=== PATIENT | female | born 2000 | race Two or more races ===

== ENCOUNTER 2019-11-18 01:11 | Emergency (ER) | payer OTHER ==
[2019-11-18] MEDS ORDERED: SODIUM CHLORIDE 0.9% 1,000 ML IV STA (01:21)
[2019-11-18] MEDS ORDERED: KETOROLAC 30 MG/ML VIAL IVP STA (01:32)
[2019-11-18] MEDS ORDERED: ONDANSETRON 4 MG/2 ML VIAL IVP STA (01:32)
[2019-11-18] MEDS ORDERED: HYDROmorphone 1 MG/ML CARPUJECT IVP STA (01:32)
--- NOTE | 2019-11-18 01:42 | ED Physician Documentation ---
History of Present Illness - Stated complaint Stated Complaint: ABD PX - Chief complaint Chief Complaint: Abd Pain - History obtained from History obtained from: Patient - Additonal information Additional information: Patient comes emergency department complaining of upper abdominal pain after eating a burger tonight. Patient states that she has already been diagnosed with gallstones and surgery scheduled on November 25 to have her gallbladder removed. She states she is often had attacks of biliary colic at night and that this feels similar. She states that usually her episodes last all night and eventually go away. Patient states that this is a little more severe than other attacks, but that she has had other attacks that are at this intensity. She states the symptoms started around 2200. She denies any vomiting but has been nauseated. No jaundice. No fevers. No dysuria or diarrhea. No other complaints at this time. Review of Systems Ten Systems: 10 systems reviewed and negative Constitutional: reports: Reviewed and negative Eyes: reports: Reviewed and negative Ears: reports: Reviewed and negative Nose: reports: Reviewed and negative Throat: reports: Reviewed and negative Cardiac: reports: Reviewed and negative Respiratory: reports: Reviewed and negative GI: reports: Abdominal Pain, Nausea : reports: Reviewed and negative Skin: reports: Reviewed and negative Musculoskeletal: reports: Reviewed and negative Neurologic: reports: Reviewed and negative Psychiatric: reports: Reviewed and negative Endocrine: reports: Reviewed and negative Immunocompromised: reports: Reviewed and negative PD PAST MEDICAL HISTORY - Past Medical History Endocrine/Autoimmune: Other (Scleroderma) : Other (Remote urethral repair, age 2?) Derm: Other - Past Surgical History Past Surgical History: Yes - Present Medications Home Medications: Ambulatory Orders Medication Instructions Recorded Confirmed Cefuroxime Axetil [Ceftin] 500 mg PO BID #14 tablet 06/30/13 Cholecalciferol (Vitamin D3) 2,000 unit PO DAILY 06/30/13 06/30/13 [Vitamin D-3] Methotrexate Inj 25 mg IM ONCE 06/30/13 06/30/13 Phenazopyridine [Pyridium] 200 mg PO TID 6 Days tablet 06/30/13 HYDROcod/ACETAM 5/325 [[place] 5/325] 1 - 2 ea PO Q6H PRN #15 tablet 11/18/19 Ondansetron Odt [Zofran] 4 mg TL Q6H PRN #10 tablet 11/18/19 - Allergies Allergies/Adverse Reactions: Allergies Allergy/AdvReac Type Severity Reaction Status Date / Time No Known Drug Allergies Allergy Verified 11/18/19 01:19 - Social History Does the pt smoke?: No Smoking Status: Never smoker Does the pt drink ETOH?: No Does the pt have substance abuse?: No - Immunizations Immunizations are current?: Yes - POLST Patient has POLST: No PD ED PE NORMAL - Vitals Vital signs reviewed: Yes - General General: Alert and oriented X 3, No acute distress, Well developed/nourished - HEENT HEENT: Atraumatic, PERRL, EOMI, Moist mucous membranes - Neck Neck: Supple, no meningeal sign - Cardiac Cardiac: RRR, No murmur, Strong equal pulses - Respiratory Respiratory: No respiratory distress, Clear bilaterally - Abdomen Abdomen: Soft, Non distended, Other (Epigastric region mainly, lesser tenderness in RUQ. No RB/guarding.) - Back Back: No CVA TTP - Derm Derm: Normal color, Warm and dry, No rash - Extremities Extremities: No deformity, No edema, No calf tenderness / cord - Neuro Neuro: Alert and oriented X 3, Other (Grossly normal.) - Psych Psych: Normal mood, Normal affect Results - Vitals Vitals: Vital Signs - 24 hr 11/18/19 11/18/19 01:14 02:40 Temperature 36.6 C Heart Rate 90 76 Respiratory 16 14 Rate Blood Pressure 116/79 116/74 O2 Saturation 98 99 Oxygen O2 Source Room air - Labs Labs: Laboratory Tests 11/18/19 11/18/19 01:45 01:45 WBC 7.5 RBC 4.97 Hgb 13.8 Hct 40.9 MCV 82.3 MCH 27.8 MCHC 33.7 RDW 13.1 Plt Count 237 MPV 9.0 Neut # (Auto) 4.2 Lymph # (Auto) 2.2 [place] # (Auto) 0.6 Eos # (Auto) 0.3 Baso # (Auto) 0.0 Absolute Nucleated RBC 0.00 Nucleated RBC % 0.0 Sodium 138 Potassium 3.8 Chloride 101 Carbon Dioxide 22 Anion Gap 15.0 H BUN 14 Creatinine 0.6 Estimated GFR (MDRD) 126 Glucose 108 H Calcium 9.6 Total Bilirubin 0.6 AST 23 ALT 36 Alkaline Phosphatase 53 Total Protein 7.5 Albumin 4.7 Globulin 2.8 Albumin/Globulin Ratio 1.7 Lipase 49 PD MEDICAL DECISION MAKING - ED course Complexity details: reviewed old records, reviewed results, re-evaluated patient, considered differential, d/w patient ED course: The patient was treated symptomatically with IV Toradol, Dilaudid, and Zofran, and worked up with laboratory studies, Which showed no elevation in white blood cell count, LFTs, lipase, or bilirubin. The patient was found to be feeling much better after symptomatic treatment, and wished to go home. We discussed good ultrasound tonight, but she stated she would rather see if the episode completely passes on its own before getting another ultrasound, and she is just had an ultrasound recently. I do feel this is reasonable, but I did discuss with the patient that if the pain medication wears off and patient's pain comes right back, then she should Come back in for further evaluation and possibly an ultrasound. We have discussed home management of symptoms, and I have given her a prescription for analgesia and antiemetics.. Departure - Departure Disposition: 01 Home, Self Care Clinical Impression: Biliary colic Condition: Stable Instructions: ED Gallstone W Biliary Colic Prescriptions: HYDROcod/ACETAM 5/325 [[place] 5/325] 1 - 2 ea PO Q6H PRN #15 tablet PRN Reason: Pain Ondansetron Odt [Zofran] 4 mg TL Q6H PRN #10 tablet PRN Reason: Nausea / Vomiting Discharge Date/Time: 11/18/19 02:40
[2019-11-18 01:56] LABS: BASOPHILS % (AUTO) 0.5 %; EOSINOPHILS # (AUTO) 0.3 10^3/uL (0.0-0.7); EOSINOPHILS % (AUTO) 4.4 %; HGB - HEMOGLOBIN 13.8 g/dL (12.0-16.0); LYMPHOCYTES # (AUTO) 2.2 10^3/uL (1.5-3.5); LYMPHOCYTES % (AUTO) 29.9 %; MEAN CORPUSCULAR HEMOGLOBIN 27.8 pg (27.0-31.0); MEAN CORPUSCULAR HGB CONC 33.7 g/dL (32.0-36.0); MEAN CORPUSCULAR VOLUME 82.3 fL (81.0-99.0); MONOCYTES # (AUTO) 0.6 10^3/uL (0.0-1.0); MONOCYTES % (AUTO) 8.6 %; NEUTROPHILS # (AUTO) 4.2 10^3/uL (1.5-6.6); NEUTROPHILS % (AUTO) 56.3 %; PLT - PLATELET COUNT 237 10^3/uL (130-450); RED BLOOD COUNT 4.97 10^6/uL (4.20-5.40); RED CELL DISTRIBUTION WIDTH 13.1 % (12.0-15.0); WHITE BLOOD COUNT 7.5 x10^3/uL (4.8-10.8)
[2019-11-18 02:11] LABS: ALBUMIN 4.7 g/dL (3.2-5.5); ALBUMIN/GLOBULIN RATIO 1.7 (1.0-2.2); BILIRUBIN,TOTAL 0.6 mg/dL (0.2-1.0); CALCIUM 9.6 mg/dL (8.5-10.3); CREATININE 0.6 mg/dL (0.4-1.0); TOTAL PROTEIN 7.5 g/dL (6.7-8.2)
[2019-11-18 02:41] VITALS: BP 116/74
== END 2019-11-18 02:40 | disposition home or self-care (01) ==
LOC: ED 01:11
DX: K80.20 Calculus of gallbladder without cholecystitis without obstruction (principal)
CPT/HCPCS: 36415; 80053; 83690; 85025; 96374; 96375; 99283; 99284; J1170

== ENCOUNTER 2019-11-26 12:04 | Day surgery (SDC) | payer OTHER ==
[2019-11-26] MEDS ORDERED: PROPOFOL 200 MG/20 ML VIAL IVP ONE (12:05)
[2019-11-26] MEDS ORDERED: fentaNYL 100 MCG/2 ML VIAL IVP ONE (12:05)
[2019-11-26] MEDS ORDERED: MIDAZOLAM 2 MG/2 ML VIAL IVP ONE (12:05)
[2019-11-26] MEDS ORDERED: KETOROLAC 30 MG/ML VIAL IVP ONE (12:05)
[2019-11-26] MEDS ORDERED: ROCURONIUM 50 MG/5 ML VIAL IVP ONE (12:05)
[2019-11-26] MEDS ORDERED: LIDOCAINE-MPF 2% 5 ML VIAL IM ONE (12:05)
[2019-11-26] MEDS ORDERED: CEFAZOLIN SODIUM IN 0.9 % NACL 2 GM/100 ML BAG IV ONE (12:15)
--- NOTE | 2019-11-26 12:22 | ANESTHESIA ---
Pre-Anesthesia VS, & Labs - Diagnosis chronic cholecystitis - Procedure laparoscopic cholecystectomy Height 5 ft 3 in Body Mass Index 26.5 - NPO >8 hours - Is Patient ?: No - Lab Results Lab results reviewed: Yes Home Medications and Allergies Home Medications: Ambulatory Orders No Known Home Medications 11/25/19 No Known Home Medications 11/25/19 Allergies/Adverse Reactions: Allergies Allergy/AdvReac Type Severity Reaction Status Date / Time No Known Drug Allergies Allergy Verified 11/18/19 01:19 Anes History & Medical History - Anesthetic History Anesthesia Complications: reports: No previous complications Family history of Anesthesia Complications: Denies Family history of Malignant Hyperthermia: Denies - Medical History Cardiovascular: reports: None Pulmonary: reports: Asthma Gastrointestinal: reports: None Urinary: reports: None, Other Musculoskeletal: reports: None Endocrine/Autoimmune: reports: Other Skin: reports: None, Other Smoking Status: Never smoker Exam General: Alert, Oriented x3, Cooperative, No acute distress Dental: WNL Mouth Openin Fingerbreadth Neck Mobility: Normal Mallampati classification: II Respiratory: Lungs clear, Normal breath sounds, No respiratory distress, No accessory muscle use Cardiovascular: Regular rate, Normal S1, Normal S2, No murmurs Plan Anesthesia Type: General Consent for Procedure(s) Verified and Reviewed: Yes Code Status: Attempt Resuscitation ASA classification: 2-Mild systemic disease Is this case an emergency?: No
[2019-11-26] MEDS ORDERED: BUPIVACAINE 0.25% PF 30 ML VIAL ONE (12:38)
[2019-11-26] MEDS ORDERED: LACTATED RINGERS 1,000 ML IV ONE ×2 (12:40→14:40)
[2019-11-26] MEDS ORDERED: NALOXONE 0.4 MG/ML VIAL IVP PRN (12:41)
[2019-11-26] MEDS ORDERED: HYDROmorphone 0.5 MG/0.5 ML SYRINGE IVP PRN (12:41)
[2019-11-26] MEDS ORDERED: fentaNYL 100 MCG/2 ML VIAL IVP PRN (12:41)
[2019-11-26] MEDS ORDERED: ONDANSETRON 4 MG/2 ML VIAL IVP PRN ×2 (12:41→14:39)
[2019-11-26] MEDS ORDERED: METOCLOPRAMIDE 10 MG/2 ML VIAL IVP PRN (12:41)
[2019-11-26] MEDS ORDERED: ATROPINE ABBOJECT 1 MG/10 ML SYRINGE IVP PRN (12:41)
[2019-11-26] MEDS ORDERED: ePHEDrine 50 MG/ML VIAL IVP PRN (12:41)
[2019-11-26] MEDS ORDERED: MORPHINE 2 MG/ML CARPUJECT IVP PRN (12:41)
[2019-11-26 12:48] LABS: HCG UR QUAL NEGATIVE
[2019-11-26] MEDS ORDERED: LACTATED RINGERS 1,000 ML IV SCH (13:00)
[2019-11-26] MEDS ORDERED: BUPIVACAINE 0.25% PF 30 ML VIAL SUBQ ONE ×2 (13:19→14:15)
[2019-11-26] MEDS ORDERED: HYDROcod/ACETAM 5/325 MG TABLET PO PRN (14:39)
--- NOTE | 2019-11-26 15:02 | ANESTHESIA POST OP EVALUATION ---
Anesthesia Post Eval - Post Anesthesia Eval Vitals: Last Vital Signs Temp 36.0 C L 11/26/19 14:58 Pulse 81 11/26/19 14:58 Resp 20 11/26/19 14:58 BP 113/59 L 11/26/19 14:58 Pulse Ox 97 11/26/19 14:58 CV Function Including HR & BP: positive: Stable Pain Control: positive: Satisfactory Nausea & Vomiting: positive: Negative Mental Status: positive: Baseline Respiratory Status: Airway Patent Hydration Status: Satisfactory Anesthesia Complications: positive: None
[2019-11-26 15:29] VITALS: BP 121/69
--- NOTE | 2019-11-26 19:16 | OPERATIVE REPORT ---
DATE OF SERVICE: 11/26/2019 Physician: Arcenio Peraza MD PREOPERATIVE DIAGNOSIS: Chronic cholecystitis. POSTOPERATIVE DIAGNOSIS: Chronic cholecystitis. PROCEDURE PERFORMED: Laparoscopic cholecystectomy. SURGEON: Arcenio Peraza MD HEALTHCARE ACCOUNT MANAGER: None. ANESTHESIA 1. General endotracheal anesthesia. 2. Local anesthesia with Marcaine. COMPLICATIONS: None. SPECIMEN: Gallbladder. ESTIMATED BLOOD LOSS: None. DRAINS: None. FINDINGS: Significant scarring involving the cystic duct. A single large gallstone present. Healthy appearing liver. INDICATIONS FOR PROCEDURE: Patient is a 19-year-old with classic and at times very significant biliary colic. She has developed chronic cholecystitis. She presents for laparoscopic cholecystectomy. She has not had signs or symptoms of choledocholithiasis. Risks discussed, alternatives discussed. All questions answered and consent obtained. DESCRIPTION OF PROCEDURE: Patient was properly identified, brought to the operating room and placed in supine position. She voided prior to surgery. General endotracheal anesthesia was induced. Sequential compression devices were placed. She was prepped and draped in a sterile fashion, given preoperative antibiotics. Local anesthetic was given to incision areas. An infraumbilical incision was made. Dissection proceeded down to the fascia. The fascia was incised, lifted upwards and abdomen entered with the Veress needle. CO2 was insufflated to a pressure of 15. An 11 mm trocar was placed, followed by 30-degree scope. There was no evidence of injury from Veress needle or trocar placement. Under direct vision, two 5 mm trocars were placed in the right upper quadrant and a 10 mm trocar was placed in the epigastrium. Fundus of the gallbladder was retracted anterior. Loose omental adhesions and peritoneal type tissue was carefully taken down. She had a long distended gallbladder with a stone in the infundibulum. The infundibulum of the gallbladder was retracted right lateral and caudad. Peritoneal type tissue and adhesions and omentum were carefully peeled away from the bottom of the gallbladder, the cystic duct and cystic artery area. She had both an anterior and posterior cystic artery branch. The anterior cystic artery was clipped at the gallbladder and x2, slightly proximal, and sharply divided. This allowed for the development of a large bare cystic plate area or window. The cystic duct had significant scarring of adipose tissue. This was carefully peeled off the cystic duct from a right lateral and left lateral view point. The cystic duct was then clipped at the gallbladder and x3 slightly proximal and sharply divided. The posterior cystic artery was then clipped at the gallbladder x2 slightly proximal and sharply divided. The gallbladder was mobilized off from the bed of the liver without spillage of bile or stone material. The fascia at the epigastrium was closed with an interrupted 0 Vicryl. Hemostasis was ensured. Clips were secure. Trocars were removed under direct vision and CO2 evacuated. Fascia at the infraumbilical site was closed with 2 [id number] 0 Vicryl sutures. Skin was closed with buried interrupted 4-0 Monocryl. Dressings were applied. She tolerated the procedure well. TD: 11/26/2019 18:32 EDILBERTO
== END 2019-11-26 12:05 | disposition home or self-care (01) ==
LOC: SDS 12:04
PROVIDERS: ATTEND Surgery
PROC: 0FT44ZZ Resection of Gallbladder, Percutaneous Endoscopic Approach (ICD-10-PCS; principal; 2019-11-26 13:00)
DX: K80.10 Calculus of gallbladder with chronic cholecystitis without obstruction (principal)
CPT/HCPCS: 47562; 81025; J0690; J7120